=== PATIENT | female | born 1970 | race Caucasian/White ===

== ENCOUNTER 2023-05-26 10:09 | Day surgery (SDC) | payer MEDICAID ==
[~2023-05-26] VITALS: Ht 170.2 cm; Wt 68.1 kg
[2023-05-26 10:40] VITALS: BP 130/77; PULSE 60; RESP 22
[2023-05-26] MEDS ORDERED: fentaNYL/PF 50MCG/1 ML 2ML syringe ONE ×2 (10:56→10:57)
[2023-05-26] MEDS ORDERED: MIDAZolam 1 MG/ML 5ML VIAL ONE (10:57)
[2023-05-26] MEDS ORDERED: diphenhydrAMINE 50 mg/ml inj ONE (11:07)
[2023-05-26] MEDS ORDERED: TOPI25TA15 PO (11:29)
[2023-05-26] MEDS ORDERED: FLUT16SP11 BOTHNARES (11:29)
[2023-05-26] MEDS ORDERED: ALBU0.63 NEB (11:29)
[2023-05-26] MEDS ORDERED: VIT B 12 PO (11:29)
[2023-05-26] MEDS ORDERED: LAMO100T2 PO (11:29)
[2023-05-26] MEDS ORDERED: SERT50TA PO (11:29)
[2023-05-26] MEDS ORDERED: VIT D3 (11:29)
[2023-05-26] MEDS ORDERED: LIDOCAINE OINT (11:29)
[2023-05-26 11:59] VITALS: BP 135/83; PULSE 63; RESP 16; O2SAT 99
[2023-05-26 12:09] VITALS: BP 134/75; PULSE 54; RESP 16; O2SAT 99
[2023-05-26 12:19] VITALS: BP 135/74; PULSE 52; RESP 12; O2SAT 99
[2023-05-26 12:29] VITALS: BP 131/71; PULSE 60; RESP 12; O2SAT 99
== END 2023-05-26 12:35 | disposition home or self-care (01) ==
LOC: GI LAB 10:09
PROVIDERS: ATTEND Internal Medicine Gastroenterology
DX: K59.09 Other constipation (principal); D12.3 Benign neoplasm of transverse colon; D12.5 Benign neoplasm of sigmoid colon; D12.2 Benign neoplasm of ascending colon; D12.0 Benign neoplasm of cecum; K64.1 Second degree hemorrhoids; F17.210 Nicotine dependence, cigarettes, uncomplicated; F12.90 Cannabis use, unspecified, uncomplicated; G40.909 Epilepsy, unspecified, not intractable, without status epilepticus; Z72.89 Other problems related to lifestyle; Z79.899 Other long term (current) drug therapy; Z88.8 Allergy status to other drugs, medicaments and biological substances
CPT/HCPCS: 45381; 45385; 99152; 99153; C1889; J1200; J2250; J3010; J7030; Z7512; A4620